=== PATIENT | male | born 1995 | race Native Hawaiian/Other Pacific Islander ===

== ENCOUNTER 2017-04-11 22:25 | Emergency (ER) | payer OTHER ==
[~2017-04-11] VITALS: Ht 172.7 cm; Wt 108.9 kg
[2017-04-11 22:33] VITALS: TEMP 98.1
[2017-04-11 23:20] LABS: PLATELET COUNT 273 K/uL (142-355)
[2017-04-11 23:31] LABS: POTASSIUM 3.3 mmol/L (3.6-5.2); SODIUM 136 mmol/L (136-145)
[2017-04-11 23:55] VITALS: BP 132/76
== END 2017-04-11 23:55 | disposition home or self-care (01) ==
LOC: ED 22:25
DX: K52.9 Noninfective gastroenteritis and colitis, unspecified (principal)
CPT/HCPCS: 36415; 80053; 85027; 96361; 96374; 99284; J2405

== ENCOUNTER 2017-05-02 06:39 | Emergency (ER) | payer OTHER ==
[~2017-05-02] VITALS: Ht 172.7 cm; Wt 108.9 kg
[2017-05-02 09:02] VITALS: BP 138/75; TEMP 98.4
== END 2017-05-02 09:12 | disposition home or self-care (01) ==
LOC: ED 06:39
DX: R11.11 Vomiting without nausea (principal); E86.9 Volume depletion, unspecified; A08.8 Other specified intestinal infections
CPT/HCPCS: 36415; 96360; 99284

== ENCOUNTER 2019-10-01 07:59 | Emergency (ER) | payer OTHER ==
[~2019-10-01] VITALS: Ht 172.7 cm; Wt 104.3 kg
[2019-10-01 08:05] VITALS: TEMP 97.9
[2019-10-01 08:38] LABS: PLATELET COUNT 231 K/uL (142-355)
[2019-10-01 08:39] LABS: POTASSIUM 3.8 mmol/L (3.6-5.2)
[2019-10-01 08:52] LABS: PARTIAL THROMBOPLASTIN TIME 27.4 SECONDS (24.5-33.6)
[2019-10-01 09:57] VITALS: BP 125/70
== END 2019-10-01 09:57 | disposition home or self-care (01) ==
LOC: ED 07:59
PROVIDERS: Hospitalist
DX: R19.7 Diarrhea, unspecified (principal); R19.5 Other fecal abnormalities; T47.6X5A Adverse effect of antidiarrheal drugs, initial encounter
CPT/HCPCS: 80053; 81000; 82150; 82272; 83690; 85027; 85610; 85730; 96360; 96375; 99284; J2405

== ENCOUNTER 2021-03-01 07:09 | Emergency (ER) | payer OTHER ==
[~2021-03-01] VITALS: Ht 175.3 cm; Wt 102.1 kg
[2021-03-01 07:13] VITALS: TEMP 97.4
[2021-03-01 08:06] LABS: PLATELET COUNT 177 K/uL (142-355)
[2021-03-01 08:19] LABS: POTASSIUM 4.3 mmol/L (3.6-5.2)
[2021-03-01 09:15] VITALS: BP 113/68
== END 2021-03-01 09:15 | disposition home or self-care (01) ==
LOC: ED 07:09
PROVIDERS: Emergency Medicine Emergency Medical Services
DX: R10.84 Generalized abdominal pain (principal)
CPT/HCPCS: 36415; 80053; 82150; 83690; 85027; 96360; 96375; 99284; J1885; J2405; J3490; Q9963

== ENCOUNTER 2022-03-04 14:42 | Emergency (ER) | payer OTHER ==
[~2022-03-04] VITALS: Ht 175.3 cm; Wt 117.9 kg
[2022-03-04 14:50] VITALS: TEMP 98.2
[2022-03-04 18:57] VITALS: BP 128/66
== END 2022-03-04 19:02 | disposition home or self-care (01) ==
LOC: ED 14:42
DX: S61.031A Puncture wound without foreign body of right thumb without damage to nail, initial encounter (principal); W55.01XA Bitten by cat, initial encounter; Y92.098 Other place in other non-institutional residence as the place of occurrence of the external cause
CPT/HCPCS: 90675; 99282

== ENCOUNTER 2022-03-08 16:52 | Emergency (ER) | payer OTHER ==
[~2022-03-08] VITALS: Ht 175.3 cm; Wt 117.9 kg
[2022-03-08 17:00] VITALS: BP 114/75; TEMP 98.5
== END 2022-03-08 19:00 | disposition home or self-care (01) ==
LOC: ED 16:52
DX: Z29.14 Encounter for prophylactic rabies immune globulin (principal)
CPT/HCPCS: 90675; 99282

== ENCOUNTER 2022-07-03 06:11 | Emergency (ER) | payer OTHER ==
[~2022-07-03] VITALS: Ht 175.3 cm; Wt 119.3 kg
[2022-07-03 06:57] LABS: PLATELET COUNT 214 K/uL (142-355)
[2022-07-03 07:54] VITALS: BP 140/76; TEMP 99.2
== END 2022-07-03 07:54 | disposition home or self-care (01) ==
LOC: ED 06:11
PROVIDERS: Family Medicine
DX: J02.0 Streptococcal pharyngitis (principal); R50.9 Fever, unspecified; R11.0 Nausea; Z20.822 Contact with and (suspected) exposure to COVID-19
CPT/HCPCS: 85027; 87502; 87635; 87651; 99283; U0003